=== PATIENT | female | born 2000 | race Caucasian/White ===

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

== ENCOUNTER 2022-01-03 14:54 | Outpatient (REF) | payer MEDICAID, SELFPAY | END 2022-01-03 14:55 | disposition home or self-care (01) | LOC: LBN 14:54 | PROVIDERS: Visit Provider Pediatrics | DX: R39.89 Other symptoms and signs involving the genitourinary system (principal) | CPT/HCPCS: 87077; 87086; 87186 ==